=== PATIENT | female | born 1990 | race Hispanic/Latino ===

== ENCOUNTER 2023-01-10 09:00 | Emergency (ER) | payer SELFPAY ==
[2023-01-10] MEDS ORDERED: Ketorolac Tromethamine 30 MG/ML VIAL ONE (09:44)
[2023-01-10] MEDS ORDERED: Acetaminophen 500 MG TAB ONE (09:44)
== END 2023-01-10 09:58 | disposition home or self-care (01) ==
LOC: ERS 09:00
DX: H60.91 Unspecified otitis externa, right ear (principal); H60.92 Unspecified otitis externa, left ear; H61.21 Impacted cerumen, right ear; J45.909 Unspecified asthma, uncomplicated
CPT/HCPCS: 96372; 99282; J1885